=== PATIENT | male | born 1985 | race Hispanic/Latino ===

== ENCOUNTER 2020-12-25 07:54 | Emergency (ER) | payer OTHER ==
[2020-12-25 08:42] LABS: RAPID GROUP A STREP POSITIVE (NEGATIVE)
[2020-12-25] MEDS ORDERED: ACETAMINOPHEN EXTRA STRENGTH 500 MG TABLET ONE (08:54)
[2020-12-25] MEDS ORDERED: PEN G BENZ/PEN G PROCAINE 1,200,000 UNIT/2 ML ML IM ONE (08:58)
[2020-12-25] MEDS ORDERED: DEXAMETHASONE SOD PHOSPHATE 10MG/ML 1ML VIAL ONE (09:22)
== END 2020-12-25 10:10 | disposition home or self-care (01) ==
LOC: EDH 07:54
DX: J02.0 Streptococcal pharyngitis (principal); Z20.822 Contact with and (suspected) exposure to COVID-19; I10 Essential (primary) hypertension
CPT/HCPCS: 87426; 87804 ×2; 87880; 96372 ×2; 99284; J0558; J1100; U0003